=== PATIENT | female | born 1950 | race Caucasian/White ===

== ENCOUNTER 2017-08-20 11:14 | Emergency (ER) | payer OTHER ==
[~2017-08-20] VITALS: Ht 167.6 cm; Wt 63.5 kg
[~2017-08-20 11:14] MED LIST: AMLODIPINE BESY10 MG PO; ASPIRIN EC325 M1 PO; ATIVAN1 MG PO; AZITHROMYCIN; BACTRIM DS TAB1 EACH PO; CALCIUM +D & M1 EAC1 PO; CELEXA40 MG PO; CLONAZEPAM; Klonopin; LORTAB; LORTAB 5 MG/5001 TA1 PO; LORTAB 5 MG/5001 TAB PO; MULTILIQ120 PO; MUPIROCIN22 GM TOP; NITROFURANTOIN100 MG PO; NORCO 5-325 TA1 EACH PO; NORCO 7.5-3251 EACH PO; NORVASC 5 MG TAB5 MG PO; ONDANSETRON HCL4 M2 PO; ONDANSETRON ODT4 MG PO; PAIN & FEVER325 MG PO; ULTRAM 50MG TAB50 MG PO; VALIUM5 MG PO; VICODIN; VICODIN 5-5001 EACH PO; ZOVIRAX 5% CR2 GM TP
[2017-08-20 12:44] LABS: ABSOLUTE NEUTROPHILS 13.1 thou/uL (1.4-8.2); BASOPHILS 0.5 % (0.0-2.0); EOSINOPHILS 0.5 % (0.0-3.0); HEMATOCRIT 44.1 % (37.0-47.0); HEMOGLOBIN 15.2 gm/dL (12.0-15.0); MCH 31.3 pg (26.0-34.0); MCHC 34.4 g/dL (28.0-37.0); MCV 90.8 fL (80.0-100.0); MONOCYTES 3.5 % (1.0-8.0); PLATELET COUNT 352 thou/uL (150-400); POLYS 83.5 % (36.0-66.0); RBC 4.86 mil/uL (4.20-5.00); RDW 12.8 % (10.5-14.5); WBC 15.6 thou/uL (4.0-11.0)
[2017-08-20 13:01] LABS: CALCIUM 9.8 mg/dL (8.5-10.1); CREATININE 0.9 mg/dL (0.6-1.0); POTASSIUM 3.7 mmol/L (3.5-5.1)
[2017-08-20 13:43] LABS: URINE BILIRUBIN NEGATIVE (Negative); URINE BLOOD 2+ (Negative); URINE CLARITY CLEAR; URINE GLUCOSE-RANDOM* NEGATIVE (Negative); URINE KETONES TRACE (Negative); URINE NITRITE-REFLEX NEGATIVE (Negative); URINE PROTEIN (DIPSTICK) NEGATIVE (Negative); URINE SPECIFIC GRAVITY <= 1.005 (1.005-1.035); URINE UROBILINOGEN 0.2 E.U./dl (0.2-1.0)
[2017-08-20 13:44] LABS: URINE COLOR COLORLESS; URINE LEUKOCYTES-REFLEX TRACE (Negative)
[2017-08-20 13:50] LABS: BARBITURATES Negative (Negative); BENZODIAZEPINES Negative (Negative); COCAINE Negative (Negative); METHADONE Negative (Negative); OPIATES POSITIVE (Negative); PCP Negative (Negative)
[2017-08-20 13:53] LABS: BACTERIA-REFLEX None Seen /HPF (None Seen); CASTS None Seen /LPF (None Seen); CRYSTALS None Seen /LPF (None Seen); SQUAMOUS 0-3 Few /LPF (0-3); URINE RBC 0-2 Rare /HPF (0-2); URINE WBC-REFLEX 0-5 Rare /HPF (0-5)
[2017-08-20 14:01] LABS: AMP/METHAMP Negative (Negative)
[2017-08-20 17:27] VITALS: BP 146/61
== END 2017-08-20 17:29 | disposition short-term general hospital (02) ==
LOC: ER 11:14
PROVIDERS: Physician Assistant
DX: R20.0 Anesthesia of skin (principal); R20.2 Paresthesia of skin; D72.829 Elevated white blood cell count, unspecified; M54.5 Low back pain; G89.29 Other chronic pain; R53.1 Weakness; F17.210 Nicotine dependence, cigarettes, uncomplicated; Z88.1 Allergy status to other antibiotic agents; Z88.0 Allergy status to penicillin; Z88.8 Allergy status to other drugs, medicaments and biological substances; Z91.041 Radiographic dye allergy status

== ENCOUNTER 2017-09-24 10:04 | Emergency (ER) | payer OTHER ==
[~2017-09-24] VITALS: Ht 162.6 cm; Wt 61.2 kg
--- NOTE | ~2017-09-24 | EKG ---
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: [facility] : 1950 Requested By: Angie Mcbride Order Number: [id number] MD: Reza Benavides Measurements Intervals [place] Rate: 98 P: 55 [place]: 149 QRS: 71 QRSD: 90 T: 39 QT: 337 QTc: 431 Interpretive Statements Sinus rhythm No significant abnormality Compared to ECG 02/27/2013 10:48:20 No significant changes Electronically Signed On 09-24-2017 17:12:32 CDT by Reza Benavides [email or web address] <ELECTRONICALLY SIGNED> By: Reza Benavides MD, [facility] 09/24/17 1712 1001 1001 Reza Benavides MD, FACC /EPI
[2017-09-24 10:42] LABS: HEMATOCRIT 42.3 % (37.0-47.0); HEMOGLOBIN 14.8 gm/dL (12.0-15.0); MCH 31.3 pg (26.0-34.0); MCHC 34.9 g/dL (28.0-37.0); MCV 89.8 fL (80.0-100.0); PLATELET COUNT 300 thou/uL (150-400); RBC 4.71 mil/uL (4.20-5.00); RDW 13.4 % (10.5-14.5); WBC 12.6 thou/uL (4.0-11.0)
[2017-09-24 11:40] LABS: PLATELET ESTIMATE NORMAL
[2017-09-24 12:17] LABS: ANION GAP 9 mmol/L (7-16); BUN 8 mg/dL (7-18); CALCIUM 9.2 mg/dL (8.5-10.1); CHLORIDE 105 mmol/L (98-107); CO2 25 mmol/L (21-32); CREATININE 0.8 mg/dL (0.6-1.0); GLUCOSE 105 mg/dL (74-106); POTASSIUM 3.6 mmol/L (3.5-5.1); SODIUM 139 mmol/L (136-145)
[2017-09-24 12:22] LABS: ALBUMIN 3.7 g/dL (3.4-5.0); SGOT 23 U/L (15-37); SGPT 25 U/L (30-65); TOTAL BILIRUBIN 0.3 mg/dL (<0.1-1.0); TOTAL PROTEIN 7.2 g/dL (6.4-8.2); TROPONIN-I <0.06 ng/mL (<0.06)
[2017-09-24] MEDS ORDERED: NAPROSYN500 MG PO (12:44)
[2017-09-24] MEDS ORDERED: VALACYCLOVIR500 MG PO (12:44)
[2017-09-24 13:21] VITALS: BP 149/79
[2017-09-26 18:11] LABS: HSV 1 DNA Negative (Negative); HSV 2 DNA Positive (Negative)
[2017-09-27 08:43] LABS: HSV PCR SOURCE BUTTOCKS
== END 2017-09-24 17:14 | disposition home or self-care (01) ==
LOC: ER 10:04
PROVIDERS: Physician Assistant
DX: R07.9 Chest pain, unspecified (principal); A60.00 Herpesviral infection of urogenital system, unspecified; R19.7 Diarrhea, unspecified; R10.2 Pelvic and perineal pain; R06.02 Shortness of breath; R20.0 Anesthesia of skin; R10.9 Unspecified abdominal pain; I10 Essential (primary) hypertension; Z88.1 Allergy status to other antibiotic agents; Z91.041 Radiographic dye allergy status; Z88.8 Allergy status to other drugs, medicaments and biological substances; Z88.0 Allergy status to penicillin; Z88.2 Allergy status to sulfonamides; Z87.891 Personal history of nicotine dependence

== ENCOUNTER 2017-10-19 15:35 | Emergency (ER) | payer OTHER ==
[~2017-10-19] VITALS: Ht 165.1 cm; Wt 59.0 kg
--- NOTE | ~2017-10-19 | EKG ---
[place] [address] [address] [address] [employer] [facility] [address] ELECTROCARDIOGRAM REPORT Name: ANGEL HERNANDEZ [facility] [id number] Admission: 10/19/17 Attend Phys: Discharge: 10/19/17 Date of : 54 Report #: [id number] THIS REPORT FOR: //name// [facility] ED Test Date: 2017-10-19 Test Time: 17:50:21 Pat Name: ANGEL HERNANDEZ Department: Room: Gender: F Manager Corporate Communications: guadalupe flannery : 1950 Requested By: Enriqeu Leonard Order Number: [id number] MD: Reza Benavides Measurements Intervals [place] Rate: 77 P: 59 CT: 169 QRS: 49 QRSD: 91 T: 40 QT: 382 QTc: 433 Interpretive Statements Sinus rhythm No significant abnormality Baseline wander in lead(s) V1 Compared to ECG 09/24/2017 10:01:31 No significant changes Electronically Signed On 10-20-2017 10:54:23 CDT by Reza Benavides [email or web address] <ELECTRONICALLY SIGNED> By: Reza Benavides MD, [facility] 10/20/17 1054 49 49 Reza Benavides MD, [facility] /EPI
[~2017-10-19 15:35] MED LIST changes: +NAPROSYN500 MG PO; +VALACYCLOVIR500 MG PO
[2017-10-19 17:05] LABS: ABSOLUTE NEUTROPHILS 10.6 thou/uL (1.4-8.2); BASOPHILS 0.7 % (0.0-2.0); EOSINOPHILS 0.7 % (0.0-3.0); HEMATOCRIT 44.3 % (37.0-47.0); HEMOGLOBIN 15.1 gm/dL (12.0-15.0); LYMPHOCYTES 15.6 % (24.0-44.0); MCH 31.7 pg (26.0-34.0); MCV 93.2 fL (80.0-100.0); MONOCYTES 5.1 % (1.0-8.0); PLATELET COUNT 323 thou/uL (150-400); POLYS 77.9 % (36.0-66.0); RBC 4.75 mil/uL (4.20-5.00); RDW 13.6 % (10.5-14.5); WBC 13.6 thou/uL (4.0-11.0)
[2017-10-19 17:07] LABS: ANION GAP 12 mmol/L (7-16); BUN 9 mg/dL (7-18); CALCIUM 9.6 mg/dL (8.5-10.1); CHLORIDE 102 mmol/L (98-107); CO2 25 mmol/L (21-32); CREATININE 0.9 mg/dL (0.6-1.0); GLUCOSE 107 mg/dL (74-106); POTASSIUM 3.6 mmol/L (3.5-5.1); SODIUM 139 mmol/L (136-145)
[2017-10-19 17:15] LABS: ALBUMIN 3.9 g/dL (3.4-5.0); MAGNESIUM 1.7 mg/dL (1.8-2.4); SGOT 18 U/L (15-37); SGPT 23 U/L (30-65); TOTAL BILIRUBIN 0.3 mg/dL (<0.1-1.0); TOTAL PROTEIN 7.6 g/dL (6.4-8.2); TROPONIN-I <0.06 ng/mL (<0.06)
[2017-10-19 17:19] LABS: URINE BILIRUBIN NEGATIVE (Negative); URINE BLOOD 1+ (Negative); URINE CLARITY CLEAR; URINE COLOR YELLOW; URINE GLUCOSE-RANDOM* NEGATIVE (Negative); URINE KETONES TRACE (Negative); URINE LEUKOCYTES-REFLEX NEGATIVE (Negative); URINE NITRITE-REFLEX NEGATIVE (Negative); URINE PROTEIN (DIPSTICK) NEGATIVE (Negative); URINE UROBILINOGEN 0.2 E.U./dl (0.2-1.0)
[2017-10-19 17:27] LABS: BACTERIA-REFLEX None Seen /HPF (None Seen); CASTS None Seen /LPF (None Seen); CRYSTALS None Seen /LPF (None Seen); SQUAMOUS None Seen /LPF (0-3); URINE RBC 0-2 Rare /HPF (0-2); URINE WBC-REFLEX 0-5 Rare /HPF (0-5)
[2017-10-19 19:00] VITALS: BP 145/70
== END 2017-10-19 19:20 | disposition home or self-care (01) ==
LOC: ER 15:35
PROVIDERS: Emergency Medicine
DX: R13.10 Dysphagia, unspecified (principal); F41.9 Anxiety disorder, unspecified; R20.2 Paresthesia of skin; Z87.891 Personal history of nicotine dependence; Z88.8 Allergy status to other drugs, medicaments and biological substances; Z88.1 Allergy status to other antibiotic agents; Z91.041 Radiographic dye allergy status; Z88.0 Allergy status to penicillin; Z88.2 Allergy status to sulfonamides; Z90.89 Acquired absence of other organs; Z86.39 Personal history of other endocrine, nutritional and metabolic disease

== ENCOUNTER 2017-11-17 16:05 | Emergency (ER) | payer OTHER ==
[~2017-11-17] VITALS: Ht 165.1 cm; Wt 59.0 kg
[2017-11-17 17:16] VITALS: BP 145/80
[2017-11-17] MEDS ORDERED: ZPAK PO (18:21)
== END 2017-11-17 19:37 | disposition home or self-care (01) ==
LOC: ER 16:05
DX: M54.2 Cervicalgia (principal); R59.0 Localized enlarged lymph nodes; I10 Essential (primary) hypertension; M48.00 Spinal stenosis, site unspecified; Z87.891 Personal history of nicotine dependence; Z88.8 Allergy status to other drugs, medicaments and biological substances; Z88.1 Allergy status to other antibiotic agents; Z91.041 Radiographic dye allergy status; Z88.0 Allergy status to penicillin; Z88.2 Allergy status to sulfonamides

== ENCOUNTER 2017-12-17 10:25 | Inpatient (IN) | payer OTHER ==
[~2017-12-17] VITALS: Ht 165.1 cm; Wt 55.8 kg
--- NOTE | ~2017-12-17 | EKG ---
[address] [address] ELECTROCARDIOGRAM REPORT Name: ANGEL HERNANDEZ Room #: 360-P ADM IN M.R.#: [id number] Admission: 12/17/17 Attend Phys: Earnest Barber MD Discharge: Date of : 54 Report #: [id number] THIS REPORT FOR: //name// [facility] ED Test Date: 2017-12-17 Test Time: 10:26:13 Pat Name: ANGEL HERNANDEZ Department: Room: 360 Gender: F Spine Supervisor: : 1950 Requested By: Jose M Huff Order Number: [id number] MD: Fei Flores Measurements Intervals [place] Rate: 105 P: 49 [place]: 143 QRS: 61 QRSD: 88 T: 30 QT: 339 QTc: 449 Interpretive Statements Sinus tachycardia Atrial premature complex Left atrial enlargement Compared to ECG 10/19/2017 17:50:21 Atrial premature complex(es) now present Atrial abnormality now present Sinus rhythm no longer present Electronically Signed On 12-17-2017 17:47:13 CDT by Fei Flores [email or web address] <ELECTRONICALLY SIGNED> By: Fei Flores MD 12/17/17 1747 1026 1026 Fei Flores MD /EPI
[~2017-12-17 10:25] MED LIST changes: +ZPAK PO
[2017-12-17 10:26] VITALS: BP 173/83
[2017-12-17 10:50] LABS: ABSOLUTE NEUTROPHILS 13.8 thou/uL (1.4-8.2); BASOPHILS 0.9 % (0.0-2.0); EOSINOPHILS 0.2 % (0.0-3.0); HEMOGLOBIN 16.2 gm/dL (12.0-15.0); LYMPHOCYTES 12.9 % (24.0-44.0); MCH 31.9 pg (26.0-34.0); MCHC 34.4 g/dL (28.0-37.0); MCV 92.6 fL (80.0-100.0); MONOCYTES 5.5 % (1.0-8.0); PLATELET COUNT 361 thou/uL (150-400); POLYS 80.5 % (36.0-66.0); RBC 5.08 mil/uL (4.20-5.00); RDW 12.8 % (10.5-14.5); WBC 17.1 thou/uL (4.0-11.0)
[2017-12-17 10:59] LABS: ANION GAP 11 mmol/L (7-16); BUN 10 mg/dL (7-18); CALCIUM 9.9 mg/dL (8.5-10.1); CHLORIDE 102 mmol/L (98-107); CO2 24 mmol/L (21-32); GLUCOSE 122 mg/dL (74-106); POTASSIUM 3.9 mmol/L (3.5-5.1); SODIUM 137 mmol/L (136-145)
[2017-12-17 11:07] LABS: TROPONIN-I <0.06 ng/mL (<0.06)
[2017-12-17 11:14] LABS: BE(vivo) 0.2 mmol/L (-2 to +3); PCO2 36.5 mmHg (35.0-45.0); PO2 57.2 mmHg (80.0-100.0); pH 7.435 (7.360-7.450); sO2 90.8 % (92.0-98.0)
[2017-12-17 14:02] VITALS: BP 147/63
[2017-12-17 15:23] VITALS: BP 98/76
[2017-12-17 15:44] VITALS: BP 104/53
[2017-12-17 19:18] VITALS: BP 101/50
[2017-12-17 23:35] VITALS: BP 100/50
[2017-12-18 04:24] VITALS: BP 107/58
[2017-12-18 04:36] LABS: CALCIUM 8.7 mg/dL (8.5-10.1); CREATININE 0.8 mg/dL (0.6-1.0); POTASSIUM 3.9 mmol/L (3.5-5.1)
[2017-12-18 04:41] LABS: ABSOLUTE NEUTROPHILS 4.8 thou/uL (1.4-8.2); BASOPHILS 0.9 % (0.0-2.0); EOSINOPHILS 2.6 % (0.0-3.0); HEMATOCRIT 36.9 % (37.0-47.0); LYMPHOCYTES 32.5 % (24.0-44.0); MCH 32.5 pg (26.0-34.0); MCHC 34.7 g/dL (28.0-37.0); MCV 93.6 fL (80.0-100.0); RBC 3.94 mil/uL (4.20-5.00); RDW 13.3 % (10.5-14.5); WBC 8.5 thou/uL (4.0-11.0)
[2017-12-18 04:42] LABS: HEMOGLOBIN 12.8 gm/dL (12.0-15.0); PLATELET COUNT 239 thou/uL (150-400)
[2017-12-18 06:59] LABS: BE(vivo) 2.1 mmol/L (-2 to +3); HCO3 27.7 mmol/L (22.0-26.0); PCO2 47.1 mmHg (35.0-45.0); PO2 262.7 mmHg (80.0-100.0); pH 7.388 (7.360-7.450); sO2 99.6 % (92.0-98.0)
[2017-12-18 08:00] VITALS: BP 101/50
[2017-12-18 11:43] VITALS: BP 134/70
[2017-12-18 15:24] VITALS: BP 107/57
[2017-12-18 19:55] VITALS: BP 103/52
[2017-12-19 04:20] VITALS: BP 109/59
[2017-12-19 05:34] LABS: ABSOLUTE NEUTROPHILS 4.1 thou/uL (1.4-8.2); EOSINOPHILS 3.8 % (0.0-3.0); HEMATOCRIT 39.1 % (37.0-47.0); HEMOGLOBIN 13.1 gm/dL (12.0-15.0); LYMPHOCYTES 29.8 % (24.0-44.0); MCH 31.3 pg (26.0-34.0); MCHC 33.4 g/dL (28.0-37.0); MCV 93.8 fL (80.0-100.0); MONOCYTES 7.9 % (1.0-8.0); PLATELET COUNT 260 thou/uL (150-400); POLYS 57.5 % (36.0-66.0); RBC 4.17 mil/uL (4.20-5.00); RDW 13.5 % (10.5-14.5); WBC 7.1 thou/uL (4.0-11.0)
[2017-12-19 05:40] LABS: CALCIUM 9.3 mg/dL (8.5-10.1); CREATININE 0.9 mg/dL (0.6-1.0); POTASSIUM 4.1 mmol/L (3.5-5.1)
[2017-12-19 07:43] VITALS: BP 115/60
[2017-12-19 16:18] VITALS: BP 116/63
[2017-12-19 20:15] VITALS: BP 116/51
[2017-12-20 04:30] VITALS: BP 105/51
[2017-12-20 07:34] VITALS: BP 117/65
[2017-12-20] MEDS ORDERED: VENTOLIN HFA 1818 GM INH (13:17)
[2017-12-20 13:58] VITALS: BP 117/65
[2017-12-20 14:19] VITALS: BP 117/65
[2017-12-20 14:45] VITALS: BP 117/65
== END 2017-12-20 16:31 | disposition home health service (06) | DRG 917 ==
LOC: ER 10:25 → EROBS 12:59 → 3W 12:59 → ENTRNSPT 12-20 14:40 → EDTRNSPTSTS 12-20 14:49 → 3W 12-20 16:31
PROVIDERS: Emergency Medicine; Hospitalist; Internal Medicine
DX: T58.91XA Toxic effect of carbon monoxide from unspecified source, accidental (unintentional), initial encounter (principal); J96.01 Acute respiratory failure with hypoxia; F41.9 Anxiety disorder, unspecified; J20.9 Acute bronchitis, unspecified; J42 Unspecified chronic bronchitis; K57.90 Diverticulosis of intestine, part unspecified, without perforation or abscess without bleeding; Z88.2 Allergy status to sulfonamides; Z88.8 Allergy status to other drugs, medicaments and biological substances; Z88.1 Allergy status to other antibiotic agents; Z91.041 Radiographic dye allergy status; Z87.891 Personal history of nicotine dependence; Z28.21 Immunization not carried out because of patient refusal; Y92.89 Other specified places as the place of occurrence of the external cause
CPT/HCPCS: 10879

== ENCOUNTER 2018-08-17 17:52 | Emergency (ER) | payer OTHER ==
[~2018-08-17] VITALS: Ht 165.1 cm; Wt 59.0 kg
[~2018-08-17 17:52] MED LIST changes: +VENTOLIN HFA 1818 GM INH
[2018-08-17 18:45] VITALS: BP 161/68
== END 2018-08-17 18:45 | disposition home or self-care (01) ==
LOC: ER 17:52
DX: L98.8 Other specified disorders of the skin and subcutaneous tissue (principal); Z87.891 Personal history of nicotine dependence; Z88.0 Allergy status to penicillin; Z88.2 Allergy status to sulfonamides; Z88.1 Allergy status to other antibiotic agents; Z88.8 Allergy status to other drugs, medicaments and biological substances

== ENCOUNTER 2020-01-05 10:36 | Observation (INO) | payer OTHER ==
[~2020-01-05] VITALS: Ht 165.1 cm; Wt 65.3 kg
--- NOTE | ~2020-01-05 | HC ---
[facility] [place] [address] CONSULTATION Name: ANGEL HERNANDEZ Room #: REG [facility]#: [id number] Admission: 01/05/20 Attend Phys: Discharge: Date of : 54 Report #: [id number] THIS REPORT FOR: cc: Chan Barajas MD, Steven A. MD Khosla,Julian Barrientos MD ~ DATE OF SERVICE: 01/05/2020 HISTORY OF PRESENT ILLNESS: This is a 69-year-old female patient who was seen by me for pretty poorly defined history. History came in piecemeal fashion. I talked to Dr. Willson initially from the Emergency Room and then came and saw this patient. The patient says that she has history of trigeminal neuralgia. She is worried about that she may have ALS. She wanted to know what trigeminal neuralgia is and what causes that. Today, she said she is numb on the right face, right upper extremity and right lower extremity. This is going on for a few days. Initially, it was thought that it is more than 24 hours, but taking the history it maybe even longer than that. She denies any anxiety. She says face is definitely involved. REVIEW OF SYSTEMS: A 14-point review of system was carried out. She says she has COPD. She used to smoke, but does not smoke now. She complained of some mild nausea. She complained of some blurred vision. One of the records indicates that when she came in she was tearful. She has history of back problem. When asked whether she has anxiety she says this is making her anxious, but when I talked to her more it looks like she is having all this problem for some time. PAST MEDICAL HISTORY: What she describe as trigeminal neuralgia. I do not think she is on any medications for that. Past medical history is also positive for trigeminal neuralgia. SOCIAL HISTORY: She says she does not smoke now and she does not drink any alcohol. PHYSICAL EXAMINATION: Indicate she is alert. She is responsive. She can follow simple commands. It looks like she is anxious, but she denies any anxiety. Her speech looks intact. Cranial nerve examination 2-12 does not appear to be showing any definite abnormality, the best I can tell except for subjective decrease in pinprick in the right side of the face. Right arm and I asked her to put it in front of her, she puts it, then she gets it down, then she put it up, then she gets it down. Same thing she does with the right leg. Sensation, she states is altered, but she can feel it. Reflexes appeared to be symmetrical when she is relaxed, but it is difficult to tell. There is no meningeal sign. Cardiac and respiratory examinations appear noncontributory. She had a CT scan, which showed mild atrophy. Her MRI is pending. [address] [address] CONSULTATION Name: ANGEL HERNANDEZ Room #: REG [facility] [id number] Admission: 01/05/20 Attend Phys: Discharge: Date of : 54 Report #: [id number] LABORATORY DATA: Indicated normal white count. IMPRESSION: Pretty difficult to form in this patient. She appeared to have anxiety. She probably had more workup in the past. I think it is desirable to rule out the possibility of stroke or any other pathology. MRI is already ordered and we will see what the MRI shows and we will go from there. Thank you very much for this referral and if you have any question, please feel free to contact me. More than 15 minutes of time was spent taking care of this patient today and majority was spent counseling and coordinating. By: 1451 1558 Julian Chisholm MD /nt
[2020-01-05 10:39] VITALS: BP 194/100
--- NOTE | 2020-01-05 10:48 | NUR ---
TONG RESPONDED TO TRAIGE AND TALKED WITH THE PT
[2020-01-05 12:01] LABS: ABSOLUTE NEUTROPHILS 7.7 thou/uL (1.4-8.2); BASOPHILS 0.7 % (0.0-2.0); EOSINOPHILS 0.2 % (0.0-3.0); HEMATOCRIT 43.9 % (37.0-47.0); HEMOGLOBIN 14.6 gm/dL (12.0-15.0); LYMPHOCYTES 16.7 % (24.0-44.0); MCH 30.8 pg (26.0-34.0); MCHC 33.3 g/dL (28.0-37.0); MCV 92.6 fL (80.0-100.0); MONOCYTES 5.1 % (1.0-8.0); PLATELET COUNT 351 thou/uL (150-400); POLYS 77.3 % (36.0-66.0); RBC 4.74 mil/uL (4.20-5.00); RDW 13.5 % (10.5-14.5)
[2020-01-05 12:05] LABS: CALCIUM 9.3 mg/dL (8.5-10.1); CREATININE 0.8 mg/dL (0.6-1.0); POTASSIUM 3.9 mmol/L (3.5-5.1)
[2020-01-05 12:13] LABS: ALBUMIN 3.9 g/dL (3.4-5.0); TOTAL BILIRUBIN 0.3 mg/dL (0.2-1.0); TOTAL PROTEIN 7.7 g/dL (6.4-8.2)
--- NOTE | 2020-01-05 14:26 | EKG ---
[facility] [place] [address] ELECTROCARDIOGRAM REPORT Name: ANGEL HERNANDEZ Room #: REG [facility]#: [id number] Admission: 01/05/20 Attend Phys: Discharge: Date of : 54 Report #: [id number] THIS REPORT FOR: cc: Chan Barjaas MD, Steven A. 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1950 Requested By: Navid Willson Order Number: [id number] MD: Mike Garduno Measurements Intervals [place] Rate: 75 P: 54 ND: 179 QRS: 41 QRSD: 89 T: 30 QT: 400 QTc: 447 Interpretive Statements Sinus rhythm Compared to ECG 12/17/2017 10:26:13 Sinus tachycardia no longer present Atrial premature complex(es) no longer present Atrial abnormality no longer present Electronically Signed On 01-05-2020 14:25:57 CDT by Mike Garduno [email or web address] <ELECTRONICALLY SIGNED> By: Mike Garduno MD, FACC 01/05/20 1425 1302 1302 Miek Garduno MD, FAC /EPI
[2020-01-05 17:31] LABS: TSH 0.413 uIU/mL (0.358-3.740)
[2020-01-06 05:15] LABS: ABSOLUTE NEUTROPHILS 4.1 thou/uL (1.4-8.2); BASOPHILS 1.2 % (0.0-2.0); EOSINOPHILS 2.9 % (0.0-3.0); LYMPHOCYTES 28.7 % (24.0-44.0); MCH 31.2 pg (26.0-34.0); MCHC 33.3 g/dL (28.0-37.0); MCV 93.5 fL (80.0-100.0); MONOCYTES 7.3 % (1.0-8.0); PLATELET COUNT 286 thou/uL (150-400); POLYS 59.9 % (36.0-66.0); RBC 4.17 mil/uL (4.20-5.00); RDW 13.6 % (10.5-14.5); WBC 6.8 thou/uL (4.0-11.0)
[2020-01-06 05:32] LABS: ANION GAP 8 mmol/L (7-16); BUN 11 mg/dL (7-18); CALCIUM 8.6 mg/dL (8.5-10.1); CHLORIDE 109 mmol/L (98-107); CHOLESTEROL 185 mg/dL (<200); CO2 27 mmol/L (21-32); CREATININE 0.8 mg/dL (0.6-1.0); GLUCOSE 88 mg/dL (74-106); HDL CHOLESTEROL 44 mg/dL (>40); LDL CHOLESTEROL 125 mg/dL (<100); POTASSIUM 3.9 mmol/L (3.5-5.1); SODIUM 144 mmol/L (136-145); TC:HDL 4.2 Ratio (Not establshd); TRIGLYCERIDE 83 mg/dL (<150); VLDL 17 mg/dL (<40)
[2020-01-06 05:40] LABS: SERUM ASSESSMENT Clear
[2020-01-06 08:30] VITALS: BP 141/69
[2020-01-06 15:00] VITALS: BP 126/72
[2020-01-06 17:34] VITALS: BP 149/69
== END 2020-01-06 17:34 | disposition home or self-care (01) ==
LOC: ER 10:36 → EROBS 16:04
PROVIDERS: Emergency Medicine; Nurse Practitioner; ADMIT Hospitalist; ATTEND Hospitalist
DX: M47.892 Other spondylosis, cervical region (principal); J96.01 Acute respiratory failure with hypoxia; F41.9 Anxiety disorder, unspecified; I10 Essential (primary) hypertension; J44.9 Chronic obstructive pulmonary disease, unspecified; I16.0 Hypertensive urgency; R53.1 Weakness; M54.9 Dorsalgia, unspecified; G62.9 Polyneuropathy, unspecified; G50.0 Trigeminal neuralgia; R47.81 Slurred speech; Z79.899 Other long term (current) drug therapy; Z20.828 Contact with and (suspected) exposure to other viral communicable diseases

== ENCOUNTER 2020-03-15 15:41 | Emergency (ER) | payer OTHER ==
[~2020-03-15] VITALS: Ht 165.1 cm; Wt 63.5 kg
[2020-03-15 16:09] LABS: ANION GAP 12 mmol/L (7-16); BUN 11 mg/dL (7-18); CALCIUM 9.9 mg/dL (8.5-10.1); CHLORIDE 104 mmol/L (98-107); CO2 26 mmol/L (21-32); GLUCOSE 188 mg/dL (74-106); POTASSIUM 3.6 mmol/L (3.5-5.1); SODIUM 142 mmol/L (136-145)
[2020-03-15 16:21] LABS: ALBUMIN 3.9 g/dL (3.4-5.0); SGOT 20 U/L (15-37); SGPT 36 U/L (14-59); TOTAL BILIRUBIN 0.2 mg/dL (0.2-1.0); TOTAL PROTEIN 7.1 g/dL (6.4-8.2); TROPONIN-I <0.06 ng/mL (<0.06)
[2020-03-15 17:13] LABS: ABSOLUTE NEUTROPHILS 7.4 thou/uL (1.4-8.2); BASOPHILS 0.7 % (0.0-2.0); EOSINOPHILS 0.6 % (0.0-3.0); HEMATOCRIT 44.1 % (37.0-47.0); HEMOGLOBIN 14.8 gm/dL (12.0-15.0); MCH 31.3 pg (26.0-34.0); MCHC 33.6 g/dL (28.0-37.0); MCV 93.1 fL (80.0-100.0); MONOCYTES 6.7 % (1.0-8.0); PLATELET COUNT 311 thou/uL (150-400); RBC 4.74 mil/uL (4.20-5.00); RDW 13.1 % (10.5-14.5); WBC 9.8 thou/uL (4.0-11.0)
[2020-03-15 19:33] VITALS: BP 139/59
--- NOTE | 2020-03-16 07:16 | EKG ---
[address] [address] [address] [facility] [place] [address] ELECTROCARDIOGRAM REPORT Name: ANGEL HERNANDEZ Room #: DEP [facility]#: [id number] Admission: 03/15/20 Attend Phys: Discharge: 03/15/20 Date of : 54 Report #: [id number] [facility] ED Test Date: 2020-03-15 Test Time: 15:42:03 Pat Name: ANGEL HERNANDEZ Department: Room: Gender: F Motor Grader Rough Grade: FRANKO : 1950 Requested By: Navid Willson Order Number: [id number] MD: Mike Garduno Measurements Intervals [place] Rate: 106 P: 74 [place]: 205 QRS: 60 QRSD: 90 T: 26 QT: 324 QTc: 431 Interpretive Statements Sinus tachycardia Left atrial enlargement Baseline wander in lead(s) V1 Compared to ECG 01/05/2020 13:02:40 Atrial abnormality now present Sinus rhythm no longer present Electronically Signed On 03-16-2020 7:16:26 [employer] by Mike Garduno [email or web address] <ELECTRONICALLY SIGNED> By: Mike Garduno MD, [facility] 03/16/20 0716 D: [id number] Mike Garduno MD, FACC /EPI
== END 2020-03-15 19:39 | disposition home or self-care (01) ==
LOC: ER 15:41
PROVIDERS: Emergency Medicine
DX: R07.89 Other chest pain (principal); R20.0 Anesthesia of skin; R06.02 Shortness of breath; R42 Dizziness and giddiness; M79.89 Other specified soft tissue disorders; R05 Cough; R50.9 Fever, unspecified; I10 Essential (primary) hypertension; J44.9 Chronic obstructive pulmonary disease, unspecified; F41.9 Anxiety disorder, unspecified; Z20.828 Contact with and (suspected) exposure to other viral communicable diseases; Z79.899 Other long term (current) drug therapy; Z88.8 Allergy status to other drugs, medicaments and biological substances; Z88.1 Allergy status to other antibiotic agents; Z91.041 Radiographic dye allergy status; Z88.0 Allergy status to penicillin; Z88.2 Allergy status to sulfonamides; Z87.891 Personal history of nicotine dependence

== ENCOUNTER → 2021-01-31 | Emergency (ER) | payer OTHER ==
[~2021-01-31] VITALS: Ht 167.6 cm; Wt 63.5 kg
[~2021-01-31] MED LIST changes: +CLEOCIN HCL300 MG PO
[2021-01-31 17:28] LABS: ABSOLUTE NEUTROPHILS 8.7 thou/uL (1.4-8.2); BASOPHILS 0.6 % (0.0-2.0); EOSINOPHILS 1.1 % (0.0-3.0); HEMATOCRIT 43.8 % (37.0-47.0); HEMOGLOBIN 14.5 gm/dL (12.0-15.0); LYMPHOCYTES 18.4 % (24.0-44.0); MCH 30.8 pg (26.0-34.0); MCV 93.4 fL (80.0-100.0); MONOCYTES 4.7 % (1.0-8.0); PLATELET COUNT 312 thou/uL (150-400); POLYS 75.2 % (36.0-66.0); RBC 4.69 mil/uL (4.20-5.00); RDW 13.2 % (10.5-14.5); WBC 11.6 thou/uL (4.0-11.0)
[2021-01-31 17:33] LABS: CALCIUM 8.9 mg/dL (8.5-10.1); CREATININE 0.9 mg/dL (0.6-1.0); POTASSIUM 3.8 mmol/L (3.5-5.1)
[2021-01-31 17:39] LABS: ALBUMIN 3.4 g/dL (3.4-5.0); TOTAL BILIRUBIN 0.2 mg/dL (0.2-1.0)
[2021-01-31 19:16] VITALS: BP 137/59
== END ==
LOC: ER 13:28
PROVIDERS: Emergency Medicine
DX: F41.9 Anxiety disorder, unspecified (principal); K05.10 Chronic gingivitis, plaque induced; I10 Essential (primary) hypertension; J44.9 Chronic obstructive pulmonary disease, unspecified; Z90.89 Acquired absence of other organs; Z79.899 Other long term (current) drug therapy; Z87.891 Personal history of nicotine dependence; Z88.0 Allergy status to penicillin; Z88.2 Allergy status to sulfonamides; Z88.1 Allergy status to other antibiotic agents; Z91.041 Radiographic dye allergy status